=== PATIENT | male | born 1975 | race Caucasian/White ===

== ENCOUNTER 2021-11-16 15:07 | Outpatient (CLI) | payer MEDICARE, OTHER | END 2021-11-16 15:08 | disposition home or self-care (01) | LOC: CTENTCT 15:07 | PROVIDERS: ATTEND Otolaryngology Plastic Surgery within the Head & Neck | DX: J34.2 Deviated nasal septum (principal) | CPT/HCPCS: 70486 ==

== ENCOUNTER 2022-01-17 08:46 | Day surgery (SDC) | payer MEDICARE, OTHER ==
[2022-01-16 10:49] VITALS: BMI 32.1
[2022-01-17] MEDS ORDERED: Oxymetazoline HCl 0.05% (30 ML BOT) ONE (09:40)
[2022-01-17] MEDS ORDERED: Bacitracin Zinc Ointment 30 gm TUBE ONE (10:31)
[2022-01-17] MEDS ORDERED: Ferric Subsulfate (ASTRINGYN) 8 GM VIAL ONE (10:31)
[2022-01-17] MEDS ORDERED: Lidocaine 1% (PF) 30 ML VIAL ONE (10:31)
[2022-01-17] MEDS ORDERED: Ketamine 50 MG/ML (10ML VIAL) ONE (10:33)
[2022-01-17] MEDS ORDERED: methylPREDNISolone Acetate 40 mg/ml Vial ONE (10:33)
[2022-01-17] MEDS ORDERED: fentaNYL PF 100 MCG/2 ML SYRINGE ONE (10:33)
[2022-01-17] MEDS ORDERED: Esmolol 100 MG/10 ML VIAL ONE (10:56)
[2022-01-17] MEDS ORDERED: PROPOFOL 200 MG/20 ML VIAL ONE (10:56)
[2022-01-17] MEDS ORDERED: Phenylephrine 10 MG/ML VIAL ONE (10:56)
[2022-01-17] MEDS ORDERED: Ondansetron PF 4 MG/2 ML Vial ONE (10:56)
[2022-01-17] MEDS ORDERED: Rocuronium Bromide 10 MG/ML (10ML VIAL) ONE (10:56)
[2022-01-17] MEDS ORDERED: NEOSTIGMINE 3 MG/3 ML SYR 3 MG/3 ML SYRINGE ONE (10:56)
[2022-01-17] MEDS ORDERED: ePHEDrine 50 MG/ML VIAL ONE (10:56)
[2022-01-17] MEDS ORDERED: Dexamethasone 20 MG/5 ML VIAL ONE (10:56)
[2022-01-17] MEDS ORDERED: Meperidine HCl/PF 25 MG/ML VIAL ONE (12:17)
[2022-01-17] MEDS ORDERED: FENTANYL 50 MCG/ML 1 ML VIAL ONE ×2 (12:22→12:56)
[2022-01-17] MEDS ORDERED: HYDROmorphone 0.5 MG/0.5 ML SYRINGE ONE (13:10)
== END 2022-01-17 14:40 | disposition home or self-care (01) ==
LOC: SDC 08:46
PROVIDERS: ATTEND Otolaryngology Plastic Surgery within the Head & Neck
PROC: 0CTQXZZ Resection of Adenoids, External Approach (ICD-10-PCS; principal; 2022-01-17)
PROC: 0CTPXZZ Resection of Tonsils, External Approach (ICD-10-PCS; 2022-01-17)
PROC: 0CBNXZZ Excision of Uvula, External Approach (ICD-10-PCS; 2022-01-17)
PROC: 09SM0ZZ Reposition Nasal Septum, Open Approach (ICD-10-PCS; 2022-01-17)
PROC: 095L0ZZ Destruction of Nasal Turbinate, Open Approach (ICD-10-PCS; 2022-01-17)
PROC: 099T8ZZ Drainage of Left Frontal Sinus, Via Natural or Artificial Opening Endoscopic (ICD-10-PCS; 2022-01-17)
PROC: 099W8ZZ Drainage of Right Sphenoid Sinus, Via Natural or Artificial Opening Endoscopic (ICD-10-PCS; 2022-01-17)
PROC: 099X8ZZ Drainage of Left Sphenoid Sinus, Via Natural or Artificial Opening Endoscopic (ICD-10-PCS; 2022-01-17)
PROC: 099Q8ZZ Drainage of Right Maxillary Sinus, Via Natural or Artificial Opening Endoscopic (ICD-10-PCS; 2022-01-17)
PROC: 099R8ZZ Drainage of Left Maxillary Sinus, Via Natural or Artificial Opening Endoscopic (ICD-10-PCS; 2022-01-17)
PROC: 099S8ZZ Drainage of Right Frontal Sinus, Via Natural or Artificial Opening Endoscopic (ICD-10-PCS; 2022-01-17)
PROC: 09TV8ZZ Resection of Left Ethmoid Sinus, Via Natural or Artificial Opening Endoscopic (ICD-10-PCS; 2022-01-17)
PROC: 09TU8ZZ Resection of Right Ethmoid Sinus, Via Natural or Artificial Opening Endoscopic (ICD-10-PCS; 2022-01-17)
DX: J32.4 Chronic pansinusitis (principal); J34.2 Deviated nasal septum; J34.3 Hypertrophy of nasal turbinates; J35.03 Chronic tonsillitis and adenoiditis; D10.39 Benign neoplasm of other parts of mouth; K13.79 Other lesions of oral mucosa; G47.33 Obstructive sleep apnea (adult) (pediatric); J45.909 Unspecified asthma, uncomplicated; I10 Essential (primary) hypertension; G43.709 Chronic migraine without aura, not intractable, without status migrainosus; E66.9 Obesity, unspecified; Z68.32 Body mass index [BMI] 32.0-32.9, adult; Z86.16 Personal history of COVID-19; Z87.820 Personal history of traumatic brain injury; Z87.891 Personal history of nicotine dependence; Z79.899 Other long term (current) drug therapy
CPT/HCPCS: 30520; 30802; 31257; 31267; 31276; 42140; 42821; J3010; 88304; J1030; J1100; J1170; J2001; J2175; J2370; J2405; J2704; J3490; J7643

== ENCOUNTER 2022-09-07 13:41 | Inpatient (IN) | payer OTHER, MEDICARE ==
[2022-09-07] MEDS ORDERED: Phenol 118 ML BOT PO PRN (16:33)
[2022-09-07] MEDS ORDERED: Acetaminophen 325 MG TAB PO PRN (16:35)
[2022-09-07] MEDS ORDERED: Ondansetron PF 4 MG/2 ML Vial IVP PRN (16:35)
[2022-09-07 16:37] VITALS: BMI 29.2
[2022-09-07] MEDS ORDERED: EPINEPHrine 4 MG in Dextrose 5% in Water 250 ML IV SCH (17:00)
[2022-09-07] MEDS: Famotidine/PF 20 mg/2ml Vial SLOW IVP SCH (21:27)
[2022-09-07] MEDS ORDERED: Electrolyte Replacement Protocol 1 EACH FS SCH (23:00)
[2022-09-08 04:22] LABS: Anion Gap 15 mmol/L (10-20); BUN (Urea Nitrogen) 17 mg/dL (8.9-20.6); Calc. Creatinine Clearance 120 mL/min (70-130); Calcium 9.4 mg/dL (7.8-10.44); Carbon Dioxide 24 mmol/L (22-29); Chloride 105 mmol/L (98-107); Estimated GFR 90; Glucose 142 mg/dL (70-105); Potassium 3.7 mmol/L (3.5-5.1); Sodium 140 mmol/L (136-145)
[2022-09-08] MEDS: Famotidine/PF 20 mg/2ml Vial SLOW IVP SCH (08:37)
[2022-09-08] MEDS ORDERED: Losartan/Hydrochlorothiazide 100 mg/25 mg Tablet PO SCH ×2 (09:00)
[2022-09-08 09:51] VITALS: TEMP 97.7
== END 2022-09-08 10:36 | disposition home or self-care (01) | DRG 916 ==
LOC: ERS 13:41 → ERHOLD 15:24 → CCU 20:03
PROVIDERS: ADMIT Internal Medicine; ATTEND Internal Medicine
DX: T88.6XXA Anaphylactic reaction due to adverse effect of correct drug or medicament properly administered, initial encounter (principal); I10 Essential (primary) hypertension; G43.909 Migraine, unspecified, not intractable, without status migrainosus; G47.33 Obstructive sleep apnea (adult) (pediatric); F17.210 Nicotine dependence, cigarettes, uncomplicated; F90.9 Attention-deficit hyperactivity disorder, unspecified type; K21.9 Gastro-esophageal reflux disease without esophagitis; T50.995A Adverse effect of other drugs, medicaments and biological substances, initial encounter; Z79.899 Other long term (current) drug therapy; Z90.89 Acquired absence of other organs; Z98.890 Other specified postprocedural states; Z91.048 Other nonmedicinal substance allergy status; Y92.89 Other specified places as the place of occurrence of the external cause
CPT/HCPCS: 36415; 70360; 71045; 80048; 96365; 96366; S0028